=== PATIENT | female | born 2000 | race Two or more races ===

== ENCOUNTER 2022-07-13 19:59 | Observation (INO) ==
[2022-07-13 20:56] LABS: Appearance Urine Clear (Clear); Bacteria Urine Automated Negative (Negative); Bilirubin Urine Negative (Negative); Blood Urine 1+ (Negative); Color Urine Yellow; Epithelial Cell Urine Auto >30 /lpf (0-5); Glucose Urine UA Negative (Negative); Ketones Urine Negative (Negative); Leukocyte Esterase Urine Negative (Negative); Nitrite Urine Negative (Negative); Protein Urine Negative (Negative); Specific Gravity Urine 1.021 (1.000-1.030); Urobilinogen Urine Negative (Negative)
[2022-07-13 20:58] LABS: Basophils # (auto) 0.04 K/uL (0-0.2); Basophils % (auto) 0.6 %; Eosinophils # (auto) 0.04 K/uL (0-0.50); Eosinophils % (auto) 0.6 %; Hematocrit (blood only) 40.5 % (37.0-47.0); Hemoglobin 13.3 g/dl (12.0-16.0); Immature Granulocytes # (auto) 0.03 K/uL (0.01-0.20); Immature Granulocytes % (auto) 0.4 %; Lymphocytes # (auto) 2.13 K/uL (1.2-3.4); Lymphocytes % (auto) 30.6 %; Mean Corpuscular Hemoglobin 27.6 pg (25.0-34.0); Mean Corpuscular Hgb Conc 32.8 g/dL (32.0-36.0); Monocytes # (auto) 0.49 K/uL (0.11-0.59); Neutrophils # (auto) 4.24 K/uL (1.40-6.50); Neutrophils % (auto) 60.8 %; Platelet Count 242 K/uL (130-400); RDW Coefficient of Variation 12.7 % (11.5-14.5); RDW Standard Deviation 38.5 fL (36.4-46.3); Red Blood Count 4.82 M/uL (4.20-5.40); White Blood Count 6.97 K/ul (4.8-10.8)
[2022-07-13 21:12] LABS: Albumin Globulin Ratio 1.3 (0.9-2); Albumin Level 4.8 gm/dl (3.4-5.0); BUN Creatinine Ratio 15.5 (10-20); Bilirubin,Total 0.5 mg/dl (0.2-1.0); Calcium 9.7 mg/dl (8.5-10.1); Creatinine Clr Calc Pharmacy 116.3 ml/min; Est GFR (African American) 140.1 ml/min; Est GFR (Non-African American) 120.9 ml/min; Globulin 3.6 gm/dl (2.5-4.0); Potassium 3.3 mmol/L (3.5-5.1); Total Protein 8.4 gm/dl (6.0-8.3)
[2022-07-13] MEDS ORDERED: ONDANSETRON INJ 2 MG/ML 2 ML VIAL IV STA (21:19)
[2022-07-13] MEDS ORDERED: SODIUM CHLORIDE 0.9% 1000ML 1,000 ML IV SCH (21:19)
--- NOTE | 2022-07-13 21:35 | Emergency Department Note ---
History of Present Illness General Chief complaint: Abdominal Pain Stated complaint: R LOWER ABDOMINAL PAIN,NAUSEA Time Seen by Provider: 07/13/22 20:56 History of Present Illness Maximum Pain Intensity: 6 Patient is a 22-year-old female who presents emergency department for evaluation of right lower quadrant abdominal pain with associated nausea and vomiting timesx4 days. Patient states that her pain started during intercourse on Monday. She notes it is a dull, aching right lower quadrant pain that does not radiate. The pain has been manageable, but has been constant for the last 4 days, and has gotten worse in the last 1 to 2 days. She states that she vomited once on Monday, 3 days ago and has had ongoing nausea and anorexia. She has not tried anything for pain including medications, ice or heat. She rates her discomfort a 6/10 currently. She is more bothered by the nausea. She has a Kyleena IUD in place x2 years. Has regular menses monthly lasting for 5 days, l ast menstrual period was 06/21/22. She is in a monogamous relationship with a boyfriend for 18 months. No vaginal discharge, no overt concern for STIs. 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 [place] Feels Safe at Home: Yes Review of Systems A total of 10 systems reviewed and were otherwise negative Physical Exam Vital Signs Vital Signs - 24 hr 07/13/22 20:10 07/13/22 21:49 07/13/22 22:31 Temperature 36.5 C Temperature Source Temporal Artery Scan Pulse Rate 104 H 88 Pulse Rate [Right Brachial] 96 H Pulse Rhythm Regular Respiratory Rate 16 15 15 Blood Pressure 124/86 Blood Pressure [Right Arm] 117/86 Blood Pressure Mean 98 Blood Pressure Mean [Right Arm] 96 Pulse Oximetry 100 98 98 Oxygen Delivery Method Room Air Room Air Sepsis Recent Fever Within 48 Hours No Sepsis New/Unexplained Change in Mental Status N/A Sepsis Action Taken by Nursing No Action Required 07/13/22 21:48 Temperature Temperature Source Pulse Rate 84 Pulse Rate [Right Brachial] Pulse Rhythm Respiratory Rate Blood Pressure Blood Pressure [Right Arm] Blood Pressure Mean Blood Pressure Mean [Right Arm] Pulse Oximetry Oxygen Delivery Method Sepsis Recent Fever Within 48 Hours Sepsis New/Unexplained Change in Mental Status Sepsis Action Taken by Nursing CONSTITUTIONAL: Patient is a well-appearing 22-year-old female who is awake and alert and laying on the gurney in no acute distress. EYES: Pupils equal, round, reactive to light and accommodation. EOMs intact without nystagmus. Sclera are anicteric. ENT: Tympanic membranes intact, with normal landmarks. External canals are clear. Oral and nasopharynx are clear. Mucous membranes are moist, no lesions, tongue and gums appear normal. CARDIOVASCULAR: Regular rate and rhythm. Peripheral pulses easily palpable. RESPIRATORY: Breath sounds equal and clear to auscultation. ABDOMEN: Bowel sounds are present. The abdomen is soft, nondistended, tender to percussion and palpation over the right lower quadrant with voluntary guarding. INTEGUMENTARY: No lesions or rash, normal skin turgor. LYMPH: No lymphadenopathy. Course Course The patient was seen and assessed as above. External medical records are reviewed. She presents the emergency department for evaluation of right lower quadrant abdominal pain with associated nausea and vomiting. IV lock was initiated. Laboratory studies were collected. CBC with differential, CMP, lipase, urinalysis and urine test were collected. Laboratory studies per my interpretation note a normal white count at 6900, no left shift. No anemia. Electrolytes are without significant abnormalities requiring correction. Renal functions are normal. Transaminases and lipase are not elevated. Urine microscopy is a contaminated sample with greater than 30 epithelial cells, there trace blood noted. No other indicators for infection. A test is negative. Patient was assessed when she was placed in the exam room. IV fluids were ordered. CT scan of the abdomen and pelvis with IV contrast was obtained. She was medicated with Zofran IV for nausea. CT scan per my interpretation and [facility] report, note the appendix is upper limits of normal in caliber, measuring up to 7 mm in diameter. No definite periappendiceal fat stranding identified. There is also a roughly 2 cm right adnexal/ovarian cyst. Clinical correlation suggested. CT scan findings were reviewed with the patient. Consultation was placed with General Surgery, and patient was seen by Talon [place] PA-C. Ultimately, plan was made to monitor the patient in the hospital overnight, and reexamine in the morning with tentative plans for appendectomy should symptoms persist. Patient was in agreement with this plan. A COVID test was obtained for admission/operative purposes. Please refer to surgical H&P for further information. Administered Medications Discontinued Medications Sodium Chloride (Nss 1000ml) 1,000 mls @ 999 mls/hr IV .Q1H1M MIGUEL Stop: 07/13/22 22:19 Last Infusion: 07/13/22 22:30 Dose: 0 mls/hr Documented By: Admin: 07/13/22 21:29 Dose: 999 mls/hr Documented By: LUDWIG Ioversol (Optiray 350 100ml) 83 ml IV ONCE ONE Stop: 07/13/22 21:39 Last Admin: 07/13/22 21:39 Dose: 83 ml Documented By: ABDIAS Ondansetron HCl (Ondansetron Inj 2 Mg/Ml 2 Ml Vial) 4 mg IV NOW STA Stop: 07/13/22 21:20 Last Admin: 07/13/22 21:29 Dose: 4 mg Documented By: LUDWIG Medical Decision Making Differential Diagnosis Differential diagnoses considered included UTI, pyelonephritis, kidney stone, appendicitis, ovarian cyst, ovarian torsion, , ectopic , PID, tubo-ovarian abscess, hernia, shingles, musculoskeletal pain, among others. Medical Records Attestation: I reviewed the patient's medical records. Home Medications Current Medication List: was personally reviewed by me Laboratory Data Attestation: I reviewed the patient's lab results. 07/13/22 20:30 07/13/22 20:30 Lab Results 07/13/22 07/13/22 07/13/22 Range/Units 20:22 20:30 20:30 WBC 6.97 (4.8-10.8) K/ul RBC 4.82 (4.20-5.40) M/uL Hgb 13.3 (12.0-16.0) g/dl Hct 40.5 (37.0-47.0) % MCV 84.0 (80.0-100.0) fL MCH 27.6 (25.0-34.0) pg MCHC 32.8 (32.0-36.0) g/dL RDW Std Deviation 38.5 (36.4-46.3) fL RDW Coeff of Gurvinder 12.7 (11.5-14.5) % Plt Count 242 (130-400) K/uL MPV 10.0 (9.4-12.4) fL Immature Gran % (Auto) 0.4 % Neut % (Auto) 60.8 % Lymph % (Auto) 30.6 % [place] % (Auto) 7.0 % Eos % (Auto) 0.6 % Baso % (Auto) 0.6 % Neut # (Auto) 4.24 (1.40-6.50) K/uL Lymph # (Auto) 2.13 (1.2-3.4) K/uL [place] # (Auto) 0.49 (0.11-0.59) K/uL Eos # (Auto) 0.04 (0-0.50) K/uL Baso # (Auto) 0.04 (0-0.2) K/uL Immature Gran # (Auto) 0.03 (0.01-0.20) K/uL Sodium 136 (136-145) mmol/L Potassium 3.3 L (3.5-5.1) mmol/L Chloride 104 (98-107) mmol/L Carbon Dioxide 24 (21-32) mmol/L Anion Gap 8 (3-11) BUN 11 (6-23) mg/dl Creatinine 0.71 (0.6-1.2) mg/dl Est Cr Clr Drug Dosing 116.3 ml/min Est GFR ( Amer) 140.1 ml/min Est GFR (Non-Af Amer) 120.9 ml/min BUN/Creatinine Ratio 15.5 (10-20) Glucose 81 (70-99(Fasting)) mg/dl Calcium 9.7 (8.5-10.1) mg/dl Total Bilirubin 0.5 (0.2-1.0) mg/dl AST 20 (13-39) U/L ALT 13 (7-52) U/L Alkaline Phosphatase 46 (34-104) U/L Total Protein 8.4 H (6.0-8.3) gm/dl Albumin 4.8 (3.4-5.0) gm/dl Globulin 3.6 (2.5-4.0) gm/dl Albumin/Globulin Ratio 1.3 (0.9-2) Lipase 26 (11-82) U/L Urine Color Yellow Urine Appearance Clear (Clear) Urine pH 7.0 (4.5-7.5) Ur Specific [place] 1.021 (1.000-1.030) Urine Protein Negative (Negative) Urine Glucose (UA) Negative (Negative) Urine Ketones Negative (Negative) Urine Blood 1+ H (Negative) Urine Nitrite Negative (Negative) Urine Bilirubin Negative (Negative) Urine Urobilinogen Negative (Negative) Ur Leukocyte Esterase Negative (Negative) Urine WBC (Auto) 1-5 (0-5) /hpf Urine RBC (Auto) 10-30 H (0-4) /hpf U Hyaline Cast (Auto) 1-5 (0-5) /lpf U Epithel Cells (Auto) >30 H (0-5) /lpf Urine Bacteria (Auto) Negative (Negative) POC Ur Test (NEG) 07/13/22 Range/Units 20:51 WBC (4.8-10.8) K/ul RBC (4.20-5.40) M/uL Hgb (12.0-16.0) g/dl Hct (37.0-47.0) % MCV (80.0-100.0) fL MCH (25.0-34.0) pg MCHC (32.0-36.0) g/dL RDW Std Deviation (36.4-46.3) fL RDW Coeff of Gurvinder (11.5-14.5) % Plt Count (130-400) K/uL MPV (9.4-12.4) fL Immature Gran % (Auto) % Neut % (Auto) % Lymph % (Auto) % [place] % (Auto) % Eos % (Auto) % Baso % (Auto) % Neut # (Auto) (1.40-6.50) K/uL Lymph # (Auto) (1.2-3.4) K/uL [place] # (Auto) (0.11-0.59) K/uL Eos # (Auto) (0-0.50) K/uL Baso # (Auto) (0-0.2) K/uL Immature Gran # (Auto) (0.01-0.20) K/uL Sodium (136-145) mmol/L Potassium (3.5-5.1) mmol/L Chloride (98-107) mmol/L Carbon Dioxide (21-32) mmol/L Anion Gap (3-11) BUN (6-23) mg/dl Creatinine (0.6-1.2) mg/dl Est Cr Clr Drug Dosing ml/min Est GFR ( Amer) ml/min Est GFR (Non-Af Amer) ml/min BUN/Creatinine Ratio (10-20) Glucose (70-99(Fasting)) mg/dl Calcium (8.5-10.1) mg/dl Total Bilirubin (0.2-1.0) mg/dl AST (13-39) U/L ALT (7-52) U/L Alkaline Phosphatase (34-104) U/L Total Protein (6.0-8.3) gm/dl Albumin (3.4-5.0) gm/dl Globulin (2.5-4.0) gm/dl Albumin/Globulin Ratio (0.9-2) Lipase (11-82) U/L Urine Color Urine Appearance (Clear) Urine pH (4.5-7.5) Ur Specific [place] (1.000-1.030) Urine Protein (Negative) Urine Glucose (UA) (Negative) Urine Ketones (Negative) Urine Blood (Negative) Urine Nitrite (Negative) Urine Bilirubin (Negative) Urine Urobilinogen (Negative) Ur Leukocyte Esterase (Negative) Urine WBC (Auto) (0-5) /hpf Urine RBC (Auto) (0-4) /hpf U Hyaline Cast (Auto) (0-5) /lpf U Epithel Cells (Auto) (0-5) /lpf Urine Bacteria (Auto) (Negative) POC Ur Test NEG (NEG) Imaging Data Attestation: I personally reviewed and interpreted this imaging study as follows: Radiologist's Impression: Abdomen/Pelvis CT 07/13/22 21:19 Exam(s): CT ABDOMEN + PELVIS With Contrast IV Amt: 83 ml optiray EXAM: CT Abdomen and Pelvis With Intravenous Contrast CLINICAL HISTORY: RLQ ABD PAIN X 4 DAYS, N/V. TECHNIQUE: Axial computed tomography images of the abdomen and pelvis with intravenous contrast. CTDI is 6.08 mGy and DLP is 283.54 mGy-cm. Automated exposure control was utilized for the study. A dose lowering technique was utilized adhering to the principles of ALARA. CONTRAST: Patient received 83 ml optiray of IV contrast COMPARISON: No relevant prior studies available. FINDINGS: Lung bases: Unremarkable. No mass. No consolidation. ABDOMEN: Liver: Unremarkable. No mass. Gallbladder and bile ducts: Unremarkable. No calcified stones. No ductal dilation. Pancreas: Unremarkable. No mass. No ductal dilation. Spleen: Unremarkable. No splenomegaly. Adrenals: Unremarkable. No mass. Kidneys and ureters: Unremarkable. No solid mass. No hydronephrosis. Stomach and bowel: No evidence for bowel obstruction. No definite asymmetric bowel mucosal abnormality. PELVIS: Appendix: The appendix is upper limits of normal in caliber, measuring up to 7 mm in diameter. No definite periappendiceal fat stranding identified. Bladder: Unremarkable. No mass. Reproductive: There is a right adnexal/ovarian cyst measuring 1.9 x 2. 1 x 1.8 cm. An IUD is noted in the uterus. The uterus is otherwise unremarkable. The left adnexa is grossly unremarkable; detailed evaluation limited. ABDOMEN and PELVIS: Intraperitoneal space: Trace free fluid in the dependent pelvis. No loculation. No free air. Bones/joints: No acute fracture. No dislocation. Soft tissues: Unremarkable. Vasculature: Unremarkable. No abdominal aortic aneurysm. Lymph nodes: Unremarkable. No enlarged lymph nodes. IMPRESSION: 1. The appendix is upper limits of normal in caliber, measuring up to 7 mm in diameter. No definite periappendiceal fat stranding identified. Suspect normal variation. Please correlate clinically. 2. There is a right adnexal/ovarian cyst measuring 1.9 x 2.1 x 1.8 cm. The clinical significance of this finding is indeterminate. Please correlate clinically. 3. Trace free fluid in the dependent pelvis. No loculation. This may be physiologic. 4. No evidence for bowel obstruction. No definite asymmetric bowel mucosal abnormality. No pneumoperitoneum. Electronically signed by: Fletcher Garcia MD 07/13/22 22:08 PM [facility] Narrative See ED course. Impression & Plan Right lower quadrant abdominal pain, Appendicitis, Right ovarian cyst Discharge Plan Visit Data Chief Complaint: Abdominal Pain Stated Complaint: R LOWER ABDOMINAL PAIN,NAUSEA ED Provider: Rinku Loja ED Midlevel Provider: Mary Beth Baltazar Discharge Problem: Right lower quadrant abdominal pain, Appendicitis, Right ovarian cyst Patient Disposition: Being Evaluated by Surgeon Forms Stand Alone Forms: [facility] Prescriptions Prescriptions: No Action No Known Home Medications Referrals Referrals: PCP,NO [Primary Care Provider] -
[2022-07-13] MEDS ORDERED: OPTIRAY 350 100ml IV ONE (21:38)
--- NOTE | 2022-07-13 22:09 | CT Scan Report ---
Exam(s): CT ABDOMEN + PELVIS With Contrast IV Amt: 83 ml optiray EXAM: CT Abdomen and Pelvis With Intravenous Contrast CLINICAL HISTORY: RLQ ABD PAIN X 4 DAYS, N/V. TECHNIQUE: Axial computed tomography images of the abdomen and pelvis with intravenous contrast. CTDI is 6.08 mGy and DLP is 283.54 mGy-cm. Automated exposure control was utilized for the study. A dose lowering technique was utilized adhering to the principles of ALARA. CONTRAST: Patient received 83 ml optiray of IV contrast COMPARISON: No relevant prior studies available. FINDINGS: Lung bases: Unremarkable. No mass. No consolidation. ABDOMEN: Liver: Unremarkable. No mass. Gallbladder and bile ducts: Unremarkable. No calcified stones. No ductal dilation. Pancreas: Unremarkable. No mass. No ductal dilation. Spleen: Unremarkable. No splenomegaly. Adrenals: Unremarkable. No mass. Kidneys and ureters: Unremarkable. No solid mass. No hydronephrosis. Stomach and bowel: No evidence for bowel obstruction. No definite asymmetric bowel mucosal abnormality. PELVIS: Appendix: The appendix is upper limits of normal in caliber, measuring up to 7 mm in diameter. No definite periappendiceal fat stranding identified. Bladder: Unremarkable. No mass. Reproductive: There is a right adnexal/ovarian cyst measuring 1.9 x 2. 1 x 1.8 cm. An IUD is noted in the uterus. The uterus is otherwise unremarkable. The left adnexa is grossly unremarkable; detailed evaluation limited. ABDOMEN and PELVIS: Intraperitoneal space: Trace free fluid in the dependent pelvis. No loculation. No free air. Bones/joints: No acute fracture. No dislocation. Soft tissues: Unremarkable. Vasculature: Unremarkable. No abdominal aortic aneurysm. Lymph nodes: Unremarkable. No enlarged lymph nodes. IMPRESSION: 1. The appendix is upper limits of normal in caliber, measuring up to 7 mm in diameter. No definite periappendiceal fat stranding identified. Suspect normal variation. Please correlate clinically. 2. There is a right adnexal/ovarian cyst measuring 1.9 x 2.1 x 1.8 cm. The clinical significance of this finding is indeterminate. Please correlate clinically. 3. Trace free fluid in the dependent pelvis. No loculation. This may be physiologic. 4. No evidence for bowel obstruction. No definite asymmetric bowel mucosal abnormality. No pneumoperitoneum. Electronically signed by: Fletcher Garcia MD 07/13/22 22:08 PM
[2022-07-13] MEDS ORDERED: ACETAMINOPHEN 1,000 MG/100 ML VIAL IV PRN (22:49)
[2022-07-13] MEDS ORDERED: cefOXitin 2,000 MG/60 ML BAG IV STA (22:49)
[2022-07-13] MEDS ORDERED: MoRPHine SULFATE 4 MG/ML 1 ML CARP\\VIAL IV PRN (22:49)
[2022-07-13] MEDS ORDERED: ONDANSETRON INJ 2 MG/ML 2 ML VIAL IV PRN (22:49)
--- NOTE | 2022-07-13 22:49 | History & Physical Report ---
Date of Service July 13, 2022 Assessment & Plan (1) Abdominal pain: Plan: I discussed with the treating clinician in the emergency department. The patient does not have a definite appendicitis but due to the CT scan findings and amount of pain noted on physical exam we presented the patient with several options. We discussed with the patient that we could potentially discharge her home with antibiotics recognize the fact that she could not improve requiring return to the emergency department. I discussed with her that we could schedule her for appendectomy tomorrow. I also discussed with her that we could observe her in the hospital, reevaluate her in the morning and then decide whether or not to proceed with surgery. I also discussed case with my attending physician Dr. Stephon Vega. We feel it is in the best interest of the patient to admit her to the hospital placed on antibiotics and tentatively schedule her for an appendectomy tomorrow. The patient is agreeable to this. We will therefore proceed as follows: Analgesia be provided Antiemetics be provided Intravenous fluids will be utilized for hydration with potassium supplementation added We will start empiric antibiotics in the form of cefoxitin (the patient notes that she is not allergic to any medicines) I discussed with the patient that she could have some clear liquids up until midnight tonight but after that point she is to be n.p.o. anticipation of planned surgery As noted the patient is [age] scheduled for a laparoscopic, possible open appendectomy with Dr. Stephon Vega on 07/14/2022. I discussed with the patient the risks, benefits, alternatives, and expected postop recovery and she wishes to proceed as outlined above. 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 Patient says that the pain is always been present in the right lower quadrant without any radiation. She notes that the pain has been unremitting and not getting better and got slightly worse today so she presented to the emergency department. She did report some shakes but denies any fevers. She has had associated nausea and vomiting. Her last oral intake was at approximate 4:00 PM today which time she ate a salad but she does note that her appetite has been decreased. She does not note any palliative or provocative factors to her pain. She notes that she has never had any prior abdominal surgeries. Since arrival to the emergency department the patient has had labs and imaging which) reviewed. A CT scan of the abdomen and pelvis showed the patient had a dilated appendix to the upper limits of normal measuring approximately 7 mm in diameter. There is no definite periappendiceal fat stranding noted. Patient was also noted to have a right adnexal/ovarian cyst measuring 1.9 x 2.1 x 1.8 cm. Labs include a CBC were white blood cell count, hemoglobin, hematocrit, and platelet count were normal. Chemistry profile showed sodium was 136. Her potassium was slightly low at 3.3. BUN and creatinine were both within the normal range. There is no elevation of LFTs or lipase. Urinalysis was not indicative of infection. A test was negative. A COVID test is pending. At the time my interview she was resting comfortably in bed and she was no distress. Concerning past medical history the patient notes that she does have asthma which is well controlled. She only utilizes a rescue inhaler and she says that she can sometimes go weeks without using it. Concerning surgical history she says she has had a thyroglossal duct cyst removed, ear myringotomy tubes, tonsils adenoidectomy, as well as wisdom teeth extraction. She notes that she has never had any abdominal surgeries as noted above. Concerning social history the patient says she occasionally vapes and drinks alcohol on social occasions. Concerning family history is no family history of coronary artery disease. Allergies Allergy/AdvReac Type Severity Reaction Status Date / Time crab Allergy Mild Hives Verified 07/13/22 23:05 Home Medications Medication Instructions Recorded Confirmed Type No Known Home Medications 07/13/22 07/13/22 History Past Med/Surg History Medical History Asthma Surgical History H/O wisdom tooth extraction History of thyroglossal duct cyst removal History of tonsillectomy and adenoidectomy Social History Smoking Status: Never smoker Second Hand Exposure: No; Do You Dip or Chew Tobacco: No; Tobacco Cessation Education Requested by Patient: No Hx Alcohol Use: Yes Alcohol type: wine and hard liquor Hx Substance Use: No Preferred Language: [place] Islander Communication Ability: Effective Mash Grinder Required: No Beliefs That Will Affect Care: None Current Living Situation: Alone Current Living Situation Comment: Goes to boyfriends house frequently 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 [place] Other Information That Helps Us Care for You: No Feels Safe at Home: Yes Safety Concerns: Feels Safe At This Time Assistive Devices: None Review of Systems Constitutional: no fever and no chills Eyes: no eye pain Ear, Nose, Mouth, Throat: no ear pain Respiratory: no cough and no dyspnea Cardiovascular: no chest pain Gastrointestinal: as per Subjective / HPI Genitourinary: no dysuria Musculoskeletal: no back pain Integumentary: no rash Neurologic: no localized weakness Physical Exam Constitutional: WD/WN, vitals as above Eyes: no conjunctival abnormality ENMT: Ears: no hearing impairment and no external ear abnormality Mouth: no oropharynx abnormality Neck: trachea midline Respiratory: normal respiratory effort, lungs clear to auscultation Cardiovascular: Rate/Rhythm: regular rate and regular rhythm Gastrointestinal (Abdomen): Abdomen is soft, nonrigid, nondistended. There is no rebound tenderness or guarding however patient did have significant pain with palpation in the right lower quadrant over McBurney's point. Musculoskeletal: No calf tenderness Skin: no rashes Neurologic: moves all extremities Results & Data Results & Data Vital Signs (Past 12 Hours) Vital Signs Temp Pulse Pulse Resp BP BP Pulse Ox 07/13/22 22:31 96 H 15 117/86 98 07/13/22 21:49 88 15 98 07/13/22 20:10 36.5 C 104 H 16 124/86 100 O2 Del Method 07/13/22 22:31 07/13/22 21:49 Room Air 07/13/22 20:10 Room Air Supervising Physician Co-Signing Physician Notes I personally saw and evaluated the patient Stewart [place] PA-C and agree with the assessment and plan. 22-year-old female with CT showing dilated appendix, possible appendicitis We will meet the patient start IV antibiotics keep n.p.o. We will tentatively plan on laparoscopic appendectomy, possible open in the morning PG Care Time/CCT Total # of Minutes Spent Total Time Spent with Patient: Total time spent is greater than 50% in coordination of care (as documented) at patient's floor/unit and/or counseling patient: Coding Level of Care Code 19157 INT INP/OBS CARE 3/75MIN Diagnoses Abdominal pain R10.9
[2022-07-14] MEDS ORDERED: FLUARIX QUADRIVALENT 0.5 ML SYR IM ONE (00:47)
[2022-07-14] MEDS: POTASSIUM CHLORIDE 10 MEQ in LACTATED RINGER'S 1,000 ML IV SCH ×2 (01:10→14:13)
[2022-07-14] MEDS: cefOXitin 2,000 MG in DEXTROSE 5% 50 ML IV SCH ×3 (05:46→17:50)
--- NOTE | 2022-07-14 06:48 | Anesthesiology Consultation ---
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 History Surgery Operation Date: 07/14/22 16:25 Proposed Procedures p Laparoscopic versus Open Appendectomy - Stephon Vega DO Height/Weight Height: 5 ft 6 in Weight: 61 kg Allergies Allergy/AdvReac Type Severity Reaction Status Date / Time crab Allergy Mild Hives Verified 07/13/22 23:05 Medications Home Medications Medication Instructions Recorded Confirmed Last Taken No Known Home Medications 07/13/22 07/13/22 Unknown Active Medications Generic Name Dose Route Start Last Admin Trade Name Freq PRN Reason Stop Dose Admin Potassium Chloride 10 meq/ 1,005 mls @ 100 mls/hr 07/13/22 23:00 07/14/22 01:10 Lactated Ringer's IV 08/12/22 22:59 100 mls/hr .Q10H3M MIGUEL Administration Acetaminophen 1,000 mg in 100 mls @ 400 mls/hr 07/13/22 22:49 07/14/22 01:10 Ofirmev IV 07/16/22 22:48 Infused Q8H PRN Infusion pain Cefoxitin Sodium 2,000 mg/ 60 mls @ 100 mls/hr 07/14/22 06:00 07/14/22 06:25 Dextrose IV 07/24/22 05:59 Infused Q6H MIGUEL Infusion Morphine Sulfate 3 mg 07/13/22 22:49 07/14/22 05:52 Morphine Sulfate 4 Mg/Ml 1 Ml Carp\Vial IV 07/27/22 22:48 3 mg Q3H PRN Administration Pain Ondansetron HCl 4 mg 07/13/22 22:49 07/14/22 05:52 Ondansetron Inj 2 Mg/Ml 2 Ml Vial IV 08/12/22 22:48 4 mg Q6H PRN Administration Nausea And Vomiting Past Medical History Medical History Asthma Past Surgical History Surgical History H/O wisdom tooth extraction History of thyroglossal duct cyst removal History of tonsillectomy and adenoidectomy Social History Smoking Status: Never smoker Do You Dip or Chew Tobacco: No Hx Alcohol Use: Yes Alcohol type: wine and hard liquor alcohol intake frequency: a few times a week Hx Substance Use: No Physical Exam Vital Signs Last Vital Signs Temp 98.5 F 07/14/22 04:36 Pulse 74 07/14/22 04:36 Resp 16 07/14/22 04:36 BP 100/67 07/14/22 04:36 Pulse Ox 98 07/14/22 04:36 O2 Del Method Room Air 07/14/22 04:36 Testing Laboratory Results Urine Color Yellow 07/13/22 20:22 Urine Appearance Clear (Clear) 07/13/22 20:22 Urine pH 7.0 (4.5-7.5) 07/13/22 20:22 Ur Specific [place] 1.021 (1.000-1.030) 07/13/22 20:22 Urine Protein Negative (Negative) 07/13/22 20:22 Urine Glucose (UA) Negative (Negative) 07/13/22 20:22 Urine Ketones Negative (Negative) 07/13/22 20:22 Urine Nitrite Negative (Negative) 07/13/22 20:22 Ur Leukocyte Esterase Negative (Negative) 07/13/22 20:22 Urine WBC (Auto) 1-5 /hpf (0-5) 07/13/22 20:22 Urine RBC (Auto) 10-30 /hpf (0-4) H 07/13/22 20:22 U Hyaline Cast (Auto) 1-5 /lpf (0-5) 07/13/22 20:22 U Epithel Cells (Auto) >30 /lpf (0-5) H 07/13/22 20:22 Urine Bacteria (Auto) Negative (Negative) 07/13/22 20:22 07/13/22 20:51 POC Ur Test NEG
[2022-07-14 06:50] LABS: Hematocrit (blood only) 31.8 % (37.0-47.0); Hemoglobin 10.5 g/dl (12.0-16.0); Mean Corpuscular Hemoglobin 27.5 pg (25.0-34.0); Mean Corpuscular Volume 83.2 fL (80.0-100.0); Mean Platelet Volume 9.9 fL (9.4-12.4); Platelet Count 190 K/uL (130-400); RDW Coefficient of Variation 12.8 % (11.5-14.5); RDW Standard Deviation 38.9 fL (36.4-46.3); Red Blood Count 3.82 M/uL (4.20-5.40); White Blood Count 5.96 K/ul (4.8-10.8)
[2022-07-14 07:06] LABS: BUN Creatinine Ratio 10.7 (10-20); Calcium 8.2 mg/dl (8.5-10.1); Creatinine Clr Calc Pharmacy 110.1 ml/min; Est GFR (African American) 131.1 ml/min; Est GFR (Non-African American) 113.1 ml/min; Potassium 3.3 mmol/L (3.5-5.1)
[2022-07-14 07:13] LABS: Basophils # (auto) 0.05 K/uL (0-0.2); Basophils % (auto) 0.8 %; Eosinophils # (auto) 0.11 K/uL (0-0.50); Eosinophils % (auto) 1.8 %; Immature Granulocytes # (auto) 0.02 K/uL (0.01-0.20); Immature Granulocytes % (auto) 0.3 %; Lymphocytes # (auto) 3.21 K/uL (1.2-3.4); Lymphocytes % (auto) 53.9 %; Monocytes # (auto) 0.38 K/uL (0.11-0.59); Monocytes % (auto) 6.4 %; Neutrophils # (auto) 2.19 K/uL (1.40-6.50); Neutrophils % (auto) 36.8 %
--- NOTE | 2022-07-14 10:21 | Surgery Progress Note ---
Date of Service July 14, 2022 Assessment & Plan (1) Appendicitis: Plan: Proceed with laparoscopic appendectomy, possible open today Consent was obtained, risk discussed including bleeding, infection, (2) Right lower quadrant abdominal pain: Admission and Anticipated Discharge Date Admission Date: July 13, 2022 Subjective Patient seen and examined. Still with right lower quadrant pain. Afebrile. Review of Systems Constitutional: no fever and no chills Physical Exam Constitutional: WD/WN, vitals as above Gastrointestinal (Abdomen): Inspection/Auscultation: abdomen normal to inspection; abdomen not distended Percussion/Palpation: + abdomen tender (Right lower quadrant), + guarding and abdomen soft; abdomen not rigid and no hernia Results & Data Vital Signs (Past 12 Hours) Vital Signs Temp Pulse Pulse Resp BP BP Pulse Ox 07/14/22 07:40 36.7 C 51 L 16 100 07/14/22 07:36 63 92/55 L 07/14/22 04:36 36.9 C 74 16 100/67 98 07/14/22 00:37 36.4 C 72 16 119/52 L 99 07/14/22 00:00 89 17 98 07/14/22 00:00 113/83 07/13/22 23:30 72 17 99 07/13/22 23:30 113/68 07/13/22 23:00 86 18 97 07/13/22 23:00 123/79 07/13/22 22:31 96 H 15 117/86 98 O2 Del Method 07/14/22 07:40 Room Air 07/14/22 07:36 07/14/22 04:36 Room Air 07/14/22 00:37 Room Air 07/14/22 00:00 07/14/22 00:00 07/13/22 23:30 07/13/22 23:30 07/13/22 23:00 07/13/22 23:00 07/13/22 22:31 PG Care Time/CCT Total # of Minutes Spent Total Time Spent with Patient: Total time spent is greater than 50% in coordination of care (as documented) at patient's floor/unit and/or counseling patient: Coding Level of Care Code 54854 SUB INP/OBS CARE 1/25MIN Diagnoses Appendicitis K37 Right lower quadrant abdominal pain R10.31
[2022-07-14] MEDS ORDERED: DEXAMETHASONE SOD INJ 4 MG/ML VIAL ONE (11:14)
[2022-07-14] MEDS ORDERED: GLYCOPYRROLATE 0.2 MG/ML VIAL ONE ×2 (11:14→12:44)
[2022-07-14] MEDS ORDERED: ROCURONIUM BROMIDE 10 MG/ML 5 ML VIAL IV ONE (11:14)
[2022-07-14] MEDS ORDERED: PROPOFOL IV EMULSION 10 MG/ML 20 ML VIAL IV ONE (11:14)
[2022-07-14] MEDS ORDERED: ONDANSETRON INJ 2 MG/ML 2 ML VIAL ONE (11:14)
[2022-07-14] MEDS ORDERED: MIDAZOLAM HCL 1 MG/ML 2ML VIAL ONE (11:15)
[2022-07-14] MEDS ORDERED: fentaNYL citrate PF 100 MCG/2 ML VIAL ONE (11:15)
[2022-07-14] MEDS ORDERED: ePHEDrine sulfate 50 MG/ML AMP IV PRN (11:38)
[2022-07-14] MEDS ORDERED: ONDANSETRON INJ 2 MG/ML 2 ML VIAL IV PRN (11:38)
[2022-07-14] MEDS ORDERED: fentaNYL citrate PF 100 MCG/2 ML VIAL IV PRN (11:38)
[2022-07-14] MEDS ORDERED: ATROPINE SULFATE 0.1 MG/ML 10ML SYR IV PRN (11:38)
[2022-07-14] MEDS ORDERED: BUPIVACAINE/EPINEPHRINE 0.5% MPF 1:200,000 30 ML VIAL ONE (11:42)
[2022-07-14] MEDS ORDERED: BUPIVACAINE/EPINEPHRINE 0.25% 1:200,000 30 ML VIAL ONE (11:44)
[2022-07-14] MEDS ORDERED: NEOSTIGMINE METHYLSULFATE 1 MG/ML 10ML VIAL ONE (12:44)
--- NOTE | 2022-07-14 13:05 | Post Operative Brief Note ---
PG Immediate Post Op with CF Date of Surgery July 14, 2022 Pre & Post Diagnosis Operation Date: 07/14/22 16:25 Pre-Op Diagnosis: Appendicitis Post-Op Diagnosis: Appendicitis, Right adnexal inflammation I identified the patient and participated in the time-out.: Yes Procedure Operation Date: 07/14/22 16:25 Actual Procedures p Laparoscopic Appendectomy(Not Applicable) - Stephon Vega DO Surgeon Stephon Vega DO Clearance Center Manager Erica Camacho PA-C Estimated Blood Loss 5 Findings Consistent with Post-Op Diagnosis Specimens Specimen Description: A. Appendix Drains Simental Catheter Anesthesia Type General Complications none Disposition Disposition: Recovery Room
--- NOTE | 2022-07-14 13:21 | Operative Report ---
PG Post Operative Report Pre & Post Diagnosis Operation Date: 07/14/22 16:25 Pre-Op Diagnosis: Appendicitis Post-Op Diagnosis: Appendicitis, right adnexal inflammation I identified the patient and participated in the time-out.: Yes Procedure Operation Date: 07/14/22 16:25 Actual Procedures p Laparoscopic Appendectomy(Not Applicable) - Stephon Vega DO Surgeon Stephon Vega DO Research Geneticist Erica Camacho PA-C Estimated Blood Loss 5 Findings Consistent with Post-Op Diagnosis Specimens Appendix to pathology Drains None Anesthesia Type General Complications none Disposition Disposition: Recovery Room Indications 22 yo with acute appendicitis Description of Procedure The patient was brought to the OR and placed in the supine position and SCD's placed. At this time she underwent general endotracheal anesthesia without incident. At this time a Simental catheter was placed under sterile conditions. Her abdomen was prepped and draped in the usual sterile fashion. She was given appropriate pre-operative antibiotics. A timeout was called, the procedure was verified as Laparoscopic appendectomy, possible open. Surgical, anesthesia and nursing teams agreed and the procedure was begun. After injection of 0.25% Marcaine with epinephrine, a supraumbilical incision was made using a #11 blade scalpel and carried down to the fascia with a hemostat. The abdomen was then elevated with towel clamps and entered using the Veress needle confirming position using the saline drop test. Pneumoperitoneum was established and 5mm trocar was placed. Laparoscope was introduced. No injury was seen from our entrance to the abdomen. At this time a 5mm suprapubic port and 12mm LLQ port were placed under direct visualization. The patient was placed in Trendelenburg and rotated to the left. At this time the appendix was visualized and the tip was freed and elevated toward the abdominal wall. The appendix was dilated and slightly injected without perforation. A window was created in the mesoappendix at the base of the appendix. A 45mm jhaveri load stapler was then fired across the base of the appendix which appeared healthy. The mesoappendix was then taken using another 45mm jhaveri load staple load. The appendix was then placed in an Endocatch bag and removed through the LLQ port site. Staple line was inspected and was intact. Hemostasis was complete. At this time the pelvis was inspected and the uterus and right adnexa appeared erythematous and inflamed. There was some bloody tinged fluid in the pelvis that was suctioned out. The 12 mm port was then closed at the fascial level using a 0 Vicryl suture using the suture passer. All ports were removed under direct visualization and no bleeding was noted. The abdomen was desufflated and the skin was closed using 4-0 Monocryl in a subcuticular fashion. Sterile dressings were applied. Simental catheter was removed. The patient was then awakened from anesthesia having remained stable throughout the entire case and transported to PACU. All needle and sponge counts were correct x 2. The physician hearing and speech assistant was present and scrubbed for the entire case. She was essential in positioning, prepping and draping the patient, driving the laparoscope, retraction and exposure, closure of the incisions and placement of the dressings. I attest to the content of the Intraoperative Record and any orders documented therein. Any exceptions are noted below.
--- NOTE | 2022-07-14 13:45 | Anesthesiology Progress Note ---
Date of Service July 14, 2022 Anesthesia Post Procedure Vital Signs Vital Signs: Temp Pulse Pulse Pulse Resp BP BP 07/14/22 13:35 52 L 15 89/59 L 07/14/22 13:25 97.5 F L 45 L 15 99/61 L 07/14/22 13:14 97.5 F L 96 H 17 125/73 07/14/22 11:17 97.9 F 53 L 20 90/54 L 07/14/22 10:46 07/14/22 07:40 98.1 F 51 L 16 07/14/22 07:36 63 92/55 L 07/14/22 04:36 98.5 F 74 16 100/67 07/14/22 00:37 97.6 F 72 16 119/52 L 07/14/22 00:00 89 17 07/14/22 00:00 113/83 07/13/22 23:30 72 17 07/13/22 23:30 113/68 07/13/22 23:00 86 18 07/13/22 23:00 123/79 07/13/22 21:48 84 07/13/22 22:31 96 H 15 117/86 07/13/22 21:49 88 15 07/13/22 20:10 97.7 F 104 H 16 124/86 Pulse Ox O2 Del Method O2 Flow Rate 07/14/22 13:35 98 Room Air 0 07/14/22 13:25 100 Oxymask 6 07/14/22 13:14 97 Oxymask 6 07/14/22 11:17 98 Room Air 07/14/22 10:46 Room Air 07/14/22 07:40 100 Room Air 07/14/22 07:36 07/14/22 04:36 98 Room Air 07/14/22 00:37 99 Room Air 07/14/22 00:00 98 07/14/22 00:00 07/13/22 23:30 99 07/13/22 23:30 07/13/22 23:00 97 07/13/22 23:00 07/13/22 21:48 07/13/22 22:31 98 07/13/22 21:49 98 Room Air 07/13/22 20:10 100 Room Air Pain Intensity Right Abdomen: Pain Intensity: 6 Transfer of Care Handoff Completed per policy Notes Mental Status: alert / awake / arousable and participated in evaluation Patient Amnestic to Procedure: Yes Nausea / Vomiting: adequately controlled Pain: adequately controlled Airway Patency, RR, SpO2: stable & adequate BP & HR: stable & adequate Hydration State: stable & adequate Anesthetic Complications: no major complications apparent and Pt Satisfied with anesthetic care
[2022-07-14] MEDS ORDERED: oxyCODONE HCL IR 5 MG TAB (IMMEDIATE RELEASE) PO PRN ×2 (14:11)
[2022-07-14] MEDS ORDERED: MoRPHine SULFATE 2 MG/ML CARP IV PRN (14:11)
[2022-07-14] MEDS ORDERED: LACTATED RINGER'S 1,000 ML IV SCH (14:11)
--- NOTE | 2022-07-18 11:56 | Discharge Summary ---
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 Patient says that the pain is always been present in the right lower quadrant without any radiation. She notes that the pain has been unremitting and not getting better and got slightly worse today so she presented to the emergency department. She did report some shakes but denies any fevers. She has had associated nausea and vomiting. Her last oral intake was at approximate 4:00 PM today which time she ate a salad but she does note that her appetite has been decreased. She does not note any palliative or provocative factors to her pain. She notes that she has never had any prior abdominal surgeries. Since arrival to the emergency department the patient has had labs and imaging which) reviewed. A CT scan of the abdomen and pelvis showed the patient had a dilated appendix to the upper limits of normal measuring approximately 7 mm in diameter. There is no definite periappendiceal fat stranding noted. Patient was also noted to have a right adnexal/ovarian cyst measuring 1.9 x 2.1 x 1.8 cm. Labs include a CBC were white blood cell count, hemoglobin, hematocrit, and platelet count were normal. Chemistry profile showed sodium was 136. Her potassium was slightly low at 3.3. BUN and creatinine were both within the normal range. There is no elevation of LFTs or lipase. Urinalysis was not indicative of infection. A test was negative. A COVID test is pending. At the time my interview she was resting comfortably in bed and she was no distress. Concerning past medical history the patient notes that she does have asthma which is well controlled. She only utilizes a rescue inhaler and she says that she can sometimes go weeks without using it. Concerning surgical history she says she has had a thyroglossal duct cyst removed, ear myringotomy tubes, tonsils adenoidectomy, as well as wisdom teeth extraction. She notes that she has never had any abdominal surgeries as noted above. Concerning social history the patient says she occasionally vapes and drinks alcohol on social occasions. Concerning family history is no family history of coronary artery disease. Principal Diagnosis laparoscopic appendectomy right lower quadrant abdominal pain right ovarian cyst Discharge Exam awake/alert Respiratory normal respiratory effort Gastrointestinal (Abdomen) Inspection/Auscultation: + abdominal surgical incision (c/d/i); abdomen not distended Percussion/Palpation: + abdomen tender (expected adelso incisional discomfort) and abdomen soft Discharge Data Allergies Allergy/AdvReac Type Severity Reaction Status Date / Time crab Allergy Mild Hives Verified 07/13/22 23:05 Consultations 07/13/22 22:28 ED Decision to Admit Stat Procedures Performed Operation Date: 07/14/22 16:25 Actual Procedures p Laparoscopic Appendectomy(Not Applicable) - Stephon Vega, Ordered Studies 07/13/22 21:19 CT Abd and Pelvis [CT abd pelvis IV con only] Stat Hospital Course (1) S/P laparoscopic appendectomy: This is a 22yF who presented to the [facility] ED on 07/13/22 with abdominal pain. Workup in the ED showed a WBC of 6.[address] a/p concerning for a right ovarian cyst with an appendix measuring upper limits of normal at 7mm without definitive periappendiceal inflammation. The patient was tender to palpation in the RLQ. Patient made NPO with IVF. Options discussed with patient and plan was made to admit the pt for overnight observation and continue to monitor symptoms and tentatively place her on the OR schedule for the following day. On 3 she was still complaining of tenderness in the RLQ. The patient ultimately went to the OR with Dr. Vega for a laparoscopic appendectomy. The patient tolerated the procedure well, see operative report for full details. Post operatively the patient's diet was advanced, pain managed on prn meds, and incisions clean/dry/intact. On POD#0 the patient was deemed stable for discharge to home. She was instructed to follow up with surgery and along with gynecology as as outpatient to follow up for her R ovarian cyst. Total Time Total Time Spent Total Time Spent (In Minutes): 10 Discharge Plan Discharge Items Patient Disposition: Home - Self-Care Reason For Visit: APPY Discharge Diagnosis: laparoscopic appendectomy Activity: Per Instructions section Lifting: No more than 10 pounds Bathing Comment: may shower starting 07/15/22; no soaking in tubs/pools Exercise/Sports: Wait until after follow-up appointment Driving/Machine Use: no driving while taking narcotics for pain Non-emergency contact: Surgeon and Alarm Operator Call non-emergency contact if: you have any medication questions, your symptoms worsen, your pain is not controlled, your pain is concerning for you, you have a fever, your temperature is above 101.5, your wound has increased redness, your wound has increased drainage and your wound pain has increased Follow-up/Referrals: Stephon Vega, [Physician] - 07/28/22 9:15 am (Please call to schedule follow up in clinic within 2 weeks ) PCP,NO [Primary Care Provider] - Diet: Regular Addtl Attending Provider Instructions: You may purchase Tylenol and/or Ibuprofen over the counter if needed for pain control over the next few days. Take per manufacturers instructions You may remove your outer surgical dressings on 07/16/22 (Gauze/tape). You will have small white bandages on underneath called steri strips. You may shower with these on. The steri strips will fall off on their own within 7-10 days. Please follow up with gynecology post operatively. You had some inflammation surrounding your ovary that should be followed up upon as an outpatient. Office #[phone] Pending Studies at Discharge: Yes Studies:: surgical pathology Stand-Alone Forms: My [facility], Smoking Cessation Medications and DC Order Discharge Orders: Discharge Order (Routine); Ordered 07/14/22 Ordered By: Erica Camacho Admission Data Admit Date/Time: 07/13/22 22:56 Attending Provider: Stephon Vega Admit Provider: Stephon Vega Primary Care Provider: PCP,NO Other Providers: Stephon Vega Other Interventions: Discharge Summary Assessment (RN) Last Done: 07/14/22 17:38 Coding Level of Care Code 18352 IN/OBS DISCH 30 MIN/LESS Diagnoses S/P laparoscopic appendectomy Z90.49
== END 2022-07-14 18:55 | disposition home or self-care (01) ==
LOC: ED 19:59 → INTOOBSV 22:56 → 3N 22:56